=== PATIENT | female | born 2000 ===

== ENCOUNTER 2018-08-04 08:14 | Outpatient (CLI) | payer OTHER | END 2018-08-04 08:36 | disposition home or self-care (01) | LOC: LAB 08:14 | DX: Z00.129 Encounter for routine child health examination without abnormal findings (principal); Z13.89 Encounter for screening for other disorder; Z13.220 Encounter for screening for lipoid disorders; Z11.3 Encounter for screening for infections with a predominantly sexual mode of transmission; Z11.4 Encounter for screening for human immunodeficiency virus [HIV] ==